=== PATIENT | male | born 1995 | race Caucasian/White ===

== ENCOUNTER 2022-12-06 11:20 | Emergency (ER) | payer SELFPAY ==
[~2022-12-06] VITALS: Ht 165 cm; Wt 99.7 kg
[2022-12-06 11:28] VITALS: BP 116/79
--- NOTE | 2022-12-06 11:56 | ED Lower Extremity ---
General Chief Complaint: Lower Extremity Stated Complaint: LT TOE PAIN Nursing Triage Note: SMASHED LEFT GREAT TOE 2 YEARS AGO. STILL HURTS AND PAINFUL TO TOUCH. Source: patient Exam Limitations: no limitations History of Present Illness Date Seen by Provider: Dec 06, 2022 Time Seen by Provider: 11:38 Initial Comments 27-year-old male presents to the ER with left great toe pain. He states that 2 years ago, his friend jumped and landed on his great toe. He thinks at that time the nail punctured both sides of his skin. He presents with swelling of the toe, erythema, small open area, and pain to touch. Allergies and Home Medications Patient Home Medication List Home Medication List Reviewed: Yes Sulfamethoxazole/Trimethoprim (Bactrim Ds Tablet) 1 Each Tablet, 1 EACH PO BID Prescribed by: Teri Silva on 12/06/22 1157 Review of Systems Constitutional: see HPI Past Znjwkti-Fddwgj-Horkdc Hx Immunizations Up To Date Influenza Vaccine Up-to-Date: No; Not Current Physical Exam Vital Signs Vital Signs - First Documented 12/06/22 11:28 Temp 36.6 Pulse 78 Resp 14 B/P (MAP) 116/79 (91) Pulse Ox 96 O2 Delivery Room Air Capillary Refill : Less Than 3 Seconds Height, Weight, BMI Height: '" Weight: lbs. oz. kg; 36.00 BMI Method: General Appearance: WD/WN, no apparent distress Neck: supple, normal inspection Cardiovascular: regular rate, rhythm Respiratory: lungs clear, normal breath sounds, no respiratory distress, no accessory muscle use Feet: left foot pain, left foot soft tissue tenderness, left foot swelling, left foot other (Erythema to great toe, open area around nailbed on lateral side) Neurologic/Psychiatric: alert, normal mood/affect Skin: normal color, warm/dry Progress/Results/Core Measures Results/Orders Vital Signs/I&O 12/06/22 11:28 Temp 36.6 Pulse 78 Resp 14 B/P (MAP) 116/79 (91) Pulse Ox 96 O2 Delivery Room Air Blood Pressure Mean: 91 Progress Progress Note : Progress Note Patient seen and evaluated, resting in recliner, no acute distress. Based on exam and symptoms, this appears like an infected ingrown toenail. I gave the patient the option of removing the toenail or antibiotics. Patient reports he would rather take the antibiotics. Patient instructed to get triple antibiotic ointment with or without pain relief [id number] and to apply this a couple times a day and to keep toe covered. I also instructed him to soak his toe in Epsom salt a couple of times a day over the weekend to help draw out the infection. I will place patient on oral antibiotic as well. Patient instructed to follow-up with podiatry. Discharge instructions and return precautions provided. Departure Impression Primary Impression: Ingrowing toenail with infection Disposition: HOME, SELF-CARE Condition: Stable Departure-Patient Inst. Decision time for Depature: 11:53 Referrals: ANASTACIO LEVI DPM Patient Instructions: INGROWN TOENAIL-INFECTED Add. Discharge Instructions: Obtain triple antibiotic ointment [id number]. There are ones that have pain medication in them, you can use these. Apply large amount of antibiotic ointment to your toe, and keep covered with a bandage. Make sure you are keeping the toe covered with a large amount of antibiotic ointment at all times. Soak your toe in an Epsom salt bath couple times a day for the next several days. Complete full course of the oral antibiotic as prescribed. Follow-up with Dr. Levi, podiatry. Call him on today to schedule follow-up appointment. Return if you develop streaking of redness up your leg, fever, or any other new, concerning, or worsening symptoms. All discharge instructions reviewed with patient and/or family. Voiced understanding. Scripts Sulfamethoxazole/Trimethoprim (Bactrim Ds Tablet) 1 Each Tablet 1 EACH PO BID for 7 Days, #14 TAB 0 Refills Prov: TERI HEWITT APRN 12/06/22 TERI HEWITT APRN Dec 06, 2022 11:56
[2022-12-06] MEDS ORDERED: SULF1TAB38 PO (11:57)
== END 2022-12-06 12:01 | disposition home or self-care (01) ==
LOC: ER 11:24 → EDBD 11:24 → ER 12:01
DX: L60.0 Ingrowing nail (principal); Z88.2 Allergy status to sulfonamides
CPT/HCPCS: 99282